=== PATIENT | female | born 1995 ===

== ENCOUNTER 2024-04-03 08:50 | Outpatient (CLI) | payer OTHER, SELFPAY ==
--- NOTE | ~2024-04-03 | US_ITS ---
EXAMINATION TYPE: US breast BI complete COMPARISON: NONE REASON FOR STUDY: Breast lump TECHNIQUE: Bilateral complete breast ultrasound was performed. INTERPRETATION: No solid or cystic mass lesion identified. No sonographic abnormality seen in either breast. IMPRESSION: No significant abnormality seen. BI-RADS CATEGORY: BI-RADS 1: Negative Reviewed, dictated and finalized at [facility].
== END 2024-04-03 08:51 ==
PROVIDERS: PCP Nurse Practitioner; Visit Provider Nurse Practitioner
DX: N63.0 Unspecified lump in unspecified breast (principal)
CPT/HCPCS: 76641